=== PATIENT | male | born 1960 | race Two or more races ===

== ENCOUNTER 2018-08-25 15:21 | Inpatient (IN) | payer OTHER ==
[2018-08-25] MEDS ORDERED: ONDANSETRON 4 MG INJ IV (18:00)
[2018-08-25] MEDS ORDERED: NACL 0.9% 3 ML SYG IV (18:00)
[2018-08-25 19:05] LABS: INR 0.96; PROTIME 12.9 Sec (11.9-14.9)
[2018-08-25 19:06] LABS: PARTIAL THROMBOPLASTIN TIME 31.7 Sec (23.0-35.0)
[2018-08-25 19:21] LABS: TROPONIN-I < 0.012 ng/ml (0.000-0.120)
[2018-08-26 06:08] LABS: ADD MAN DIFF? NO
[2018-08-26 06:12] LABS: BASOPHIL # 0.1 10^3/ul (0.0-0.1); BASOPHILS % 0.5 % (0.0-2.0); EOSINOPHILS # 0.7 10^3/ul (0.0-0.5); EOSINOPHILS % 6.4 % (0.0-7.0); HEMATOCRIT 43.7 % (42.0-52.0); HEMOGLOBIN 14.6 g/dl (14.0-18.0); LYMPHOCYTES # 3.5 10^3/ul (0.8-2.9); LYMPHOCYTES % 29.9 % (15.0-51.0); MEAN CORPUSCULAR HGB CONC 33.4 g/dl (32.0-37.0); MEAN CORPUSCULAR VOLUME 89.9 fl (82.0-101.0); MEAN PLATELET VOLUME 9.8 fl (7.4-10.4); MONOCYTE # 0.8 10^3/ul (0.3-0.9); MONOCYTES % 6.7 % (0.0-11.0); NEUTROPHIL # 6.5 10^3/ul (1.6-7.5); NEUTROPHILS % 56.1 % (39.0-77.0); PLATELET COUNT 376 10^3/UL (140-415); RED BLOOD COUNT 4.86 10^6/ul (4.70-6.10); RED CELL DISTRIBUTION WIDTH 13.3 % (11.5-14.5)
[2018-08-26 06:12] LABS: WHITE BLOOD COUNT 11.6 10^3/ul (4.8-10.8)
[2018-08-26 06:30] LABS: HEMOGLOBIN A1C 5.3 % (0-5.9)
[2018-08-26 06:41] LABS: ALANINE AMINOTRANSFERASE 15 IU/L (13-69); ALBUMIN 3.2 g/dl (3.3-4.9); ALBUMIN/GLOBULIN RATIO 0.88; ALKALINE PHOSPHATASE 78 IU/L (42-121); ANION GAP 13 (8-16); ASPARTATE AMINO TRANSFERASE 17 IU/L (15-46); BILIRUBIN,INDIRECT 0.2 mg/dl (0-1.1); BILIRUBIN,TOTAL 0.2 mg/dl (0.2-1.3); BLOOD UREA NITROGEN 20 mg/dl (7-20); CALCIUM 9.8 mg/dl (8.4-10.2); CARBON DIOXIDE 28 mmol/L (21-31); CHLORIDE 107 mmol/L (97-110); CHOL/HDL RATIO 5.4 RATIO; CHOLESTEROL 191 mg/dl (100-200); CREATININE 1.07 mg/dl (0.61-1.24); GLUCOSE 114 mg/dl (70-220); HDL CHOLESTEROL 35 mg/dl (28-71); LDL CHOLESTEROL,CALCULATED 128 mg/dl; MAGNESIUM 2.2 mg/dl (1.7-2.5); PHOSPHORUS 3.9 mg/dl (2.5-4.9); SODIUM 144 mmol/L (135-144); TOTAL PROTEIN 6.8 g/dl (6.1-8.1); TRIGLYCERIDES 140 mg/dl (0-149)
[2018-08-26 06:46] LABS: LACTATE DEHYDROGENASE 408 IU/L (313-618)
[2018-08-26] MEDS: NICOTINE (14 MG/24 HR) PATCH TRANSDERM (09:29)
[2018-08-26] MEDS: AZITHROMYCIN 250 MG TAB PO (09:29)
[2018-08-26] MEDS: CEFTRIAXONE 1 GM/50 ML (PMX) 50 ML IVPB (09:30)
[2018-08-26] MEDS: ACETAMINOPHEN 325 MG TAB PO ×2 (14:31→22:28)
[2018-08-26] MEDS: LIDOCAINE 1% (MPF) 5 ML VIAL (19:52)
[2018-08-26 20:27] LABS: FLD PMN% 59.3 %; FLD RBC 8000 /uL; FLD WBC 5769 /cmm
[2018-08-26 20:34] LABS: FLUID LD 823 U/L; FLUID TOTAL PROTEIN 4.3 g/dl; FLUID TYPE THORACENTESIS FLUID
[2018-08-26 21:38] LABS: FLD CLARITY HAZY; FLD COLOR OTHER
[2018-08-26 21:38] LABS: FLD TYPE THORACENTHESIS
[2018-08-26 21:39] LABS: FLD MN% 40.7 %
[2018-08-27 06:02] LABS: ADD MAN DIFF? NO
[2018-08-27 06:06] LABS: BASOPHIL # 0.1 10^3/ul (0.0-0.1); BASOPHILS % 1.3 % (0.0-2.0); EOSINOPHILS # 0.7 10^3/ul (0.0-0.5); EOSINOPHILS % 6.7 % (0.0-7.0); HEMATOCRIT 41.8 % (42.0-52.0); HEMOGLOBIN 13.9 g/dl (14.0-18.0); MEAN CORPUSCULAR HEMOGLOBIN 29.8 pg (29.0-33.0); MEAN CORPUSCULAR HGB CONC 33.3 g/dl (32.0-37.0); MEAN CORPUSCULAR VOLUME 89.7 fl (82.0-101.0); MEAN PLATELET VOLUME 9.9 fl (7.4-10.4); MONOCYTE # 0.6 10^3/ul (0.3-0.9); MONOCYTES % 6.1 % (0.0-11.0); NEUTROPHIL # 5.8 10^3/ul (1.6-7.5); NEUTROPHILS % 56.6 % (39.0-77.0); PLATELET COUNT 366 10^3/UL (140-415); RED BLOOD COUNT 4.66 10^6/ul (4.70-6.10); RED CELL DISTRIBUTION WIDTH 13.5 % (11.5-14.5)
[2018-08-27 06:06] LABS: WHITE BLOOD COUNT 10.3 10^3/ul (4.8-10.8)
[2018-08-27 06:27] LABS: ANION GAP 9 (8-16); BLOOD UREA NITROGEN 20 mg/dl (7-20); CALCIUM 8.9 mg/dl (8.4-10.2); CARBON DIOXIDE 28 mmol/L (21-31); CHLORIDE 109 mmol/L (97-110); CREATININE 0.97 mg/dl (0.61-1.24); GLUCOSE 94 mg/dl (70-220); MAGNESIUM 1.8 mg/dl (1.7-2.5); PHOSPHORUS 3.5 mg/dl (2.5-4.9); SODIUM 142 mmol/L (135-144)
[2018-08-27] MEDS: AZITHROMYCIN 250 MG TAB PO (08:26)
[2018-08-27] MEDS: NICOTINE (14 MG/24 HR) PATCH TRANSDERM (08:26)
[2018-08-27] MEDS: CEFTRIAXONE 1 GM/50 ML (PMX) 50 ML IVPB (08:26)
[2018-08-27 19:27] LABS: B-TYPE NATRIURETIC PEPTIDE 118 PG/ML (0-125)
[2018-08-27 19:30] LABS: TROPONIN-I < 0.012 ng/ml (0.000-0.120)
[2018-08-27] MEDS: ATORVASTATIN 40 MG TAB PO (21:12)
[2018-08-28] MEDS: ACETAMINOPHEN 325 MG TAB PO (01:00)
[2018-08-28 01:35] LABS: TROPONIN-I < 0.012 ng/ml (0.000-0.120)
[2018-08-28 08:08] LABS: TROPONIN-I < 0.012 ng/ml (0.000-0.120)
[2018-08-28] MEDS: NICOTINE (14 MG/24 HR) PATCH TRANSDERM (09:08)
[2018-08-28] MEDS: INFLUENZA VIRUS VACCINE 0.5 ML (DISPENSING) IM* (09:48)
[2018-08-28] MEDS: CEFTRIAXONE 1 GM/50 ML (PMX) 50 ML IVPB (10:05)
[2018-08-28] MEDS: AZITHROMYCIN 250 MG TAB PO (10:05)
[2018-08-28] MEDS: MAGNESIUM SULFATE 1 GM/D5W 100 ML IVPB (12:26)
[2018-08-28 13:06] LABS: TROPONIN-I < 0.012 ng/ml (0.000-0.120)
== END 2018-08-28 15:50 | disposition home or self-care (01) | DRG 186 ==
LOC: 6WM 15:21
PROVIDERS: Family Medicine
PROC: 0W9B3ZX Drainage of Left Pleural Cavity, Percutaneous Approach, Diagnostic (ICD-10-PCS; principal; 2018-08-26)
DX: J90 Pleural effusion, not elsewhere classified (principal); I46.9 Cardiac arrest, cause unspecified; I44.2 Atrioventricular block, complete; F17.200 Nicotine dependence, unspecified, uncomplicated; I35.0 Nonrheumatic aortic (valve) stenosis; R07.89 Other chest pain
CPT/HCPCS: 32555; 71045; 80048; 80053; 80061; 83036; 83615; 83735; 83880; 84100; 84157; 84443; 84484; 85025; 85610; 85730; 87040; 87070; 87102; 87116; 88104; 88305; 89051; 90686; 93005; 93306; 94002